=== PATIENT | female | born 1990 | race African-American/Black ===

== ENCOUNTER 2016-07-16 12:51 | Observation (INO) | payer MEDICAID ==
[~2016-07-16] VITALS: Ht 165.1 cm; Wt 72.0 kg
[2016-07-16 13:19] VITALS: BP 121/62
[2016-07-16] MEDS ORDERED: IRON (13:19)
[2016-07-16] MEDS ORDERED: PREN1TAB46 PO (13:19)
== END 2016-07-16 16:00 | disposition home or self-care (01) ==
LOC: EDSTATUS 13:36 → L&D 13:41
PROVIDERS: ADMIT Obstetrics & Gynecology; ATTEND Obstetrics & Gynecology
DX: O21.2 Late vomiting of pregnancy (principal); Z3A.28 28 weeks gestation of pregnancy
CPT/HCPCS: 99281; G0378

== ENCOUNTER 2018-12-30 08:02 | Emergency (ER) | payer MEDICAID ==
[~2018-12-30] VITALS: Ht 165.1 cm; Wt 63.0 kg
[~2018-12-30 08:02] MED LIST: IRON; PREN1TAB46 PO
[2018-12-30] MEDS ORDERED: HYDROCODONE/ACETAMINOPHEN 5/325MG TABLET PO ONE (08:45)
[2018-12-30 09:12] LABS: CLARITY URINE CLOUDY (CLEAR); COLOR URINE YELLOW (YELLOW); KETONES URINE NEGATIVE (NEGATIVE); LEUKOCYTE ESTERASE URINE 2+ (NEGATIVE); NITRITE URINE NEGATIVE (NEGATIVE); OCCULT BLOOD URINE NEGATIVE (NEGATIVE); PH URINE 5.5 (4.5-8.0); PROTEIN URINE NEGATIVE (NEGATIVE)
[2018-12-30 10:01] VITALS: BP 122/84
== END 2018-12-30 10:02 | disposition home or self-care (01) ==
LOC: ER 08:02
DX: N75.1 Abscess of Bartholin's gland (principal); N39.0 Urinary tract infection, site not specified; J45.909 Unspecified asthma, uncomplicated; Z91.010 Allergy to peanuts
CPT/HCPCS: 56420; 81003; 81025; 87086; 99283; A4217; Z7610